=== PATIENT | female | born 1970 | race Caucasian/White ===

== ENCOUNTER 2020-12-30 14:04 | Emergency (ER) | payer OTHER ==
[2020-12-30] MEDS ORDERED: Aspirin Chewable 81 MG TAB ONE (14:37)
[2020-12-30 14:59] LABS: #Eosinphils 0.1 10x3/uL (0.0-0.5); #Monocytes 0.5 10x3/uL (0.0-1.1); #Neutrophils 6.6 10x3/uL (1.5-8.4); %Basophils 0.3 % (0.0-2.0); %Eosinophils 0.8 % (0.0-6.0); %Lymphocytes 21.4 % (18.0-47.0); %Monocytes 5.5 % (0.0-10.0); %Neutrophils 71.8 % (40.0-75.0); Hemoglobin 13.6 g/dL (12.0-15.5); Mean Corpuscular HGB CONC 33.7 g/dL (32.0-36.0); Mean Corpuscular Volume 83.3 fl (81.6-98.3); Mean Platelet Volume 9.3 fl (7.4-10.4); Platelet Count 297 10x3/uL (150-450); RBC Distribution Width 13.1 % (11.5-14.5); Red Blood Cell (RBC) Count 4.85 10x6/uL (3.90-5.03); White Blood Cell (WBC) Count 9.2 10x3/uL (3.5-10.5)
[2020-12-30 15:31] LABS: ALT (SGPT) 23 U/L (8-55); AST (SGOT) 24 U/L (5-34); Albumin 4.2 g/dL (3.5-5.0); Alkaline Phosphatase 106 U/L (40-110); Anion Gap 14 mmol/L (10-20); BUN (Urea Nitrogen) 14 mg/dL (9.8-20.1); Bilirubin, Total 0.7 mg/dL (0.2-1.2); Calc. Creatinine Clearance 0 mL/min (70-130); Carbon Dioxide 25 mmol/L (22-29); Chloride 104 mmol/L (98-107); Globulin 3.3 g/dL (2.4-3.5); Glucose 168 mg/dL (70-105); Potassium 4.2 mmol/L (3.5-5.1); Protein, Total 7.5 g/dL (6.0-8.3); Sodium 139 mmol/L (136-145)
[2020-12-30 18:10] LABS: Troponin I Less than 0.010 ng/mL (< 0.028)
== END 2020-12-30 18:35 | disposition home or self-care (01) ==
LOC: CSHERS 14:04
DX: R07.9 Chest pain, unspecified (principal); D64.9 Anemia, unspecified; E11.9 Type 2 diabetes mellitus without complications; E78.2 Mixed hyperlipidemia; Z79.84 Long term (current) use of oral hypoglycemic drugs; Z79.899 Other long term (current) drug therapy
CPT/HCPCS: 36415; 71045; 80053; 84484; 85025; 93005